=== PATIENT | male | born 2000 | race African-American/Black ===

== ENCOUNTER 2024-07-12 13:19 | Emergency (ER) | payer OTHER, SELFPAY ==
[2024-07-12 15:03] LABS: SARS-CoV-2 E Target Negative; SARS-CoV-2 N2 Target Negative; SARS-CoV-2 NAA Rapid Test Not Detected (NotDetected); SARS-CoV-2 RdRP gene Negative
== END 2024-07-12 15:17 | disposition home or self-care (01) ==
LOC: MADERS 13:19
DX: M79.10 Myalgia, unspecified site (principal); R05.9 Cough, unspecified; R09.81 Nasal congestion; F17.210 Nicotine dependence, cigarettes, uncomplicated
CPT/HCPCS: 87804; 99283; U0002

== ENCOUNTER 2024-07-23 15:40 | Emergency (ER) | payer SELFPAY | END 2024-07-23 17:07 | disposition home or self-care (01) | LOC: MADERS 15:40 | DX: J20.9 Acute bronchitis, unspecified (principal); F17.210 Nicotine dependence, cigarettes, uncomplicated | CPT/HCPCS: 71045 ==

== ENCOUNTER 2024-10-04 02:43 | Emergency (ER) | payer SELFPAY ==
[2024-10-04] MEDS ORDERED: Oxymetazoline HCl 0.05% (30 ML BOT) ONE (02:49)
[2024-10-06 10:07] LABS: Hematocrit 43.3 % (42.0-52.0); Hemoglobin 14.1 g/dL (14.0-18.0)
[2024-10-06 10:18] LABS: INR-International Normal Ratio 1.1; PTT 32.9 sec (22.9-36.1); Prothrombin Time 13.8 sec (12.0-14.7)
== END 2024-10-04 03:08 | disposition home or self-care (01) ==
LOC: MADERS 02:43
DX: R04.0 Epistaxis (principal); F17.210 Nicotine dependence, cigarettes, uncomplicated
CPT/HCPCS: 85014; 85018; 85610; 85730; 99283

== ENCOUNTER 2024-10-06 09:19 | Emergency (ER) | payer SELFPAY ==
[2024-10-06 11:05] LABS: Hematocrit 43.3 % (42.0-52.0); Hemoglobin 14.1 g/dL (14.0-18.0)
[2024-10-06 11:06] LABS: INR-International Normal Ratio 1.1; PTT 32.9 sec (22.9-36.1); Prothrombin Time 13.8 sec (12.0-14.7)
== END 2024-10-06 10:26 | disposition home or self-care (01) ==
LOC: MADERS 09:19
DX: R04.0 Epistaxis (principal); R09.82 Postnasal drip; F17.210 Nicotine dependence, cigarettes, uncomplicated
CPT/HCPCS: 71046